=== PATIENT | female | born 2000 | race Caucasian/White ===

== ENCOUNTER 2024-09-07 12:16 | Emergency (ER) | payer SELFPAY ==
[~2024-09-07] VITALS: Ht 167.6 cm; Wt 65.8 kg
[2024-09-07] MEDS ORDERED: KETOROLAC TROMETHAMINE 30 MG/ML VIAL IV STA (12:34)
[2024-09-07 12:50] LABS: LEUKOCYTE ESTERASE ,URINE NEGATIVE (NEGATIVE)
[2024-09-07 12:51] LABS: PREGNANCY TEST, URINE NEGATIVE (NEGATIVE); PROTEIN,URINE DIPSTICK NEGATIVE (NEGATIVE); URINE UROBILINOGEN 0.2 mg/dL (0.2 - 1)
[2024-09-07 12:57] LABS: EPITHELIAL CELLS,URINE MODERATE /LPF; WBC,URINE (MAN) 0-5 /HPF (0-5)
[2024-09-07 13:17] VITALS: TEMP 98.4
[2024-09-07] MEDS ORDERED: IOPAMIDOL 370 MG/ML 100 ML INFUS..BTL INJ ONE (13:36)
[2024-09-07 14:36] LABS: BASOPHILS % 1.4 % (0.0-1.0); EOSINOPHILS % 0.2 % (0.0-6.0); LYMPHOCYTES % 63.1 % (18.0-39.1); MONOCYTES % 9.0 % (4.4-11.3); NEUTROPHILS % 26.1 % (38.7-80.0); RED CELL DISTRIBUTION WIDTH 12.5 % (11.7-14.4)
[2024-09-07] MEDS: KETOROLAC TROMETHAMINE 30 MG/ML VIAL IM STA (14:52)
[2024-09-07 15:04] LABS: EST GLOMERULAR FILTRATION RATE 116.0 ML/MIN (>=60)
[2024-09-07 15:47] VITALS: PULSE 79; RESP 17
[2024-09-07] MEDS ORDERED: FLOMAX0.4 MG PO (15:51)
[2024-09-07 16:05] LABS: MONOCYTES % (MANUAL) 13 % (3.4-9.0); NEUTROPHILS % (MANUAL) 33 % (40-74)
[2024-09-07 16:07] LABS: PLATELET ESTIMATE SLIGHTLY DECREASED; PLATELET MORPHOLOGY COMMENT NORMAL; RBC MORPHOLOGY COMMENT NORMAL
[2024-09-07 16:08] LABS: LYMPHOCYTES % (MANUAL) 50 % (19-48); REACTIVE LYMPHOCYTES 4
[2024-09-07] MEDS: Morphine 4mg INJECTION 4 MG/ML INJ IM ONE (16:09)
[2024-09-07 17:27] VITALS: BP 134/78; PULSE 72; RESP 18; O2SAT 100
== END 2024-09-07 17:32 | disposition home or self-care (01) ==
LOC: ER 12:36
DX: N23 Unspecified renal colic (principal); M54.9 Dorsalgia, unspecified; M79.18 Myalgia, other site; Z88.8 Allergy status to other drugs, medicaments and biological substances
CPT/HCPCS: 36415; 74176; 80048; 81001; 81025; 85025; 99284; J1885; J2270; Q9967